=== PATIENT | male | born 1985 | race Caucasian/White ===

== ENCOUNTER 2022-02-17 11:06 | Outpatient (CLI) | payer BC | END 2022-02-17 11:07 | disposition home or self-care (01) | LOC: BICRAD 11:06 | PROVIDERS: ATTEND Physician Assistant Medical | DX: R10.13 Epigastric pain (principal); R63.4 Abnormal weight loss; R11.0 Nausea; K62.89 Other specified diseases of anus and rectum; R19.8 Other specified symptoms and signs involving the digestive system and abdomen | CPT/HCPCS: 71046 ==